=== PATIENT | female | born 1965 | race Two or more races ===

== ENCOUNTER 2019-08-02 01:44 | Emergency (ER) | payer OTHER ==
[~2019-08-02] VITALS: Ht 170.2 cm; Wt 56.5 kg
[2019-08-02] MEDS ORDERED: ALBUTEROL/IPRATROPIUM 2.5MG/0.5MG, 3 ML ONE ×3 (02:20→03:48)
--- NOTE | 2019-08-02 02:26 | NUR ---
PT. TO ED WITH C/O SOB/DRY COUGH STARTING "AFTER THE SPA". LIA BROWN IN TO EVAL AND DISCUSS POC/COLLECT FLU SWAB. PT. MEDICATED PER AUG. CONTINUOUS PULSE OX AND HEART MONITORS APPLIED. DR. NDIAYE ALSO IN TO [facility]. RT AT BS NOW. PT. IN SINUS TACH ON MONITOR. LABS DRAWN.
[2019-08-02 02:29] LABS: BASOPHILS # (AUTO) 0.01 x10^3/uL (0-0.1); BASOPHILS % (AUTO) 0 % (0-1); EOSINOPHILS # (AUTO) 0.02 x10^3/uL (0-0.4); EOSINOPHILS % (AUTO) 0 % (1-7); LYMPHOCYTES % (AUTO) 10 % (22-44); MD NO; MEAN CORPUSCULAR HEMOGLOBIN 31.3 pg (27.0-34.8); MEAN CORPUSCULAR HGB CONC 34.3 g/dL (32.4-35.8); MEAN CORPUSCULAR VOLUME 91.2 fL (80-100); MEAN PLATELET VOLUME 8.3 fL (7.4-10.4); MONOCYTES # (AUTO) 0.87 x10^3/uL (0.2-0.8); MONOCYTES % (AUTO) 15 % (2-9); NEUTROPHILS # (AUTO) 4.29 x10^3/uL (1.8-6.8); NEUTROPHILS % (AUTO) 74 % (42-75); PLATELET COUNT 200 x10^3/uL (130-400); RED BLOOD COUNT 4.31 x10^6/uL (3.82-5.3); RED CELL DISTRIBUTION WIDTH 12.8 % (9.6-15.2)
[2019-08-02] MEDS: ALBUTEROL/IPRATROPIUM 2.5MG/0.5MG, 3 ML NPPB SCH ×2 (02:29→03:29)
[2019-08-02] MEDS ORDERED: ACETAMINOPHEN 325 MG TABLET ONE (02:37)
[2019-08-02 02:38] LABS: ALANINE AMINOTRANSFERASE 32 U/L (12-78); ALBUMIN 4.4 g/dL (3.4-5.0); ANION GAP 7 mmol/L (5-15); CHLORIDE 106 mmol/L (98-107); CREATININE 0.98 mg/dL (0.55-1.02)
[2019-08-02 02:40] LABS: RAPID INFLUENZA A Negative (Negative); RAPID INFLUENZA B Negative (Negative)
[2019-08-02 02:42] LABS: ALKALINE PHOSPHATASE 69 U/L (45-117); BILIRUBIN,TOTAL 0.4 mg/dL (0.2-1.0); TOTAL PROTEIN 7.7 g/dL (6.4-8.2); TROPONIN I < 0.015 ng/mL (0.000-0.045)
--- NOTE | 2019-08-02 02:47 | NUR ---
REPORT BACK TO ELAYNE CABRAL TO ASSUME PRIMARY CARE.
[2019-08-02] MEDS ORDERED: ACETAMINOPHEN 325 MG TABLET PO ONE (03:00)
[2019-08-02 03:45] VITALS: BP 146/54
--- NOTE | 2019-08-02 03:46 | NUR ---
PT STATES SHE FEELS BETTER, AWAITING BREATHING TREATMENT. VSS.
[2019-08-02] MEDS ORDERED: ALBUTEROL/IPRATROPIUM 2.5MG/0.5MG, 3 ML NPPB ONE (04:00)
--- NOTE | 2019-08-02 04:32 | NUR ---
PT LEAVING AMA.
== END 2019-08-02 04:36 | disposition left against medical advice (07) ==
LOC: ED 02:36
DX: R06.00 Dyspnea, unspecified (principal); J45.909 Unspecified asthma, uncomplicated; Z77.22 Contact with and (suspected) exposure to environmental tobacco smoke (acute) (chronic)
CPT/HCPCS: 36415; 80053; 83880; 84484; 85025; 87400; 93005; 94640; 99285; J7512; J7620